=== PATIENT | male | born 1950 | race Caucasian/White ===

== ENCOUNTER 2018-10-15 13:14 | Emergency (ER) | payer BC ==
[2018-10-15] MEDS ORDERED: Sodium Chloride 0.9% 1,000 ML IV ONE (13:20)
[2018-10-15] MEDS ORDERED: Sodium Chloride 0.9% 2.5 ML Syringe FLUSH PRN (13:20)
[2018-10-15] MEDS ORDERED: Aspirin 81 MG Tab.Chew PO ONE (13:20)
[2018-10-15] MEDS ORDERED: Sodium Chloride 0.9% 10 ML Syringe FLUSH PRN (13:20)
[2018-10-15] MEDS ORDERED: Tenecteplase 50 MG Kit IV STA (13:32)
--- NOTE | 2018-10-15 13:32 | EDM.PDOC ---
ED HPI GENERAL MEDICAL PROBLEM - General Chief Complaint: General Stated Complaint: DIZZINESS/SWEATING Time Seen by Provider: 10/15/18 13:23 Source of Information: Reports: Patient History Limitations: Reports: No Limitations - History of Present Illness INITIAL COMMENTS - FREE TEXT/NARRATIVE: HISTORY AND PHYSICAL: History of present illness: Patient is a 68 her old male who presents to the emergency room today with complaints of chest pain, weakness, diaphoretic and near syncope. He said approximately 9 AM this morning he had a pressure across his chest which was somewhat alleviated by resting. States he became area diaphoretic and felt weak. He reports with physical exertion he felt like he could pass out. Upon arrival to the emergency room he was diaphoretic and states that he has generalized weakness. Patient states he has no personal medical history does not take any medications on a routine basis. No personal history of cardiac disease. No family history of cardiac disease. Patient is a nonsmoker, no history of tobacco use. Review of systems: As per history of present illness and below otherwise all systems reviewed and negative. Past medical history: As per history of present illness and as reviewed below otherwise noncontributory. Surgical history: As per history of present illness and as reviewed below otherwise noncontributory. Social history: See social history for further information Family history: As per history of present illness and as reviewed below otherwise noncontributory. Physical exam: General: Well-developed and well-nourished 60-year-old male. Alert and oriented. Vital signs have been reviewed by me. Comfortably on the cot during examination. HEENT: Atraumatic, normocephalic, pupils equal and reactive bilaterally, negative for conjunctival pallor or scleral icterus, mucous membranes moist, trachea midline. No drooling or trismus noted. No meningeal signs. No hot potato voice noted. Lungs: Clear to auscultation, breath sounds equal bilaterally, chest nontender. Heart: S1S2, regular rate and rhythm, bradycardia, without overt murmur Abdomen: Soft, nondistended, nontender. Negative for masses or hepatosplenomegaly. Negative for costovertebral tenderness. Pelvis: Stable nontender. Skin: Pale, intact, warm, slightly diaphoretic. No lesions or rashes noted. Extremities: Atraumatic, moves all extremities per self without difficulty or deficits. Neurovascular unremarkable. Neuro: Awake, alert, oriented. Cranial nerves II through XII unremarkable. Cerebellum unremarkable. Motor and sensory unremarkable throughout. Exam nonfocal. Notes: Dr Hayes was directly involved in this case. Dr Bernal, [facility] ER physician, is aware of this patient and agreeable ticks at this patient for further care and management. Patient is aware of EKG findings and the need for transfer to higher acuity of care. Risks versus benefits of tearing case was discussed with patient and family members at bedside. Agreeable to plan of care. Repeat EKG was performed. [facility] is here to transfer the patient to [facility]. Diagnostics: CBC, CMP, INR, UA, Troponin, EKG, In Home Tutor, Pacer Pads, CXR Therapeutics: SL x 2, IV fluids, ASA, TNKase Impression: Acute DC Plan: Transfer to [facility] in [place] via [facility] Definitive disposition and diagnosis as appropriate pending reevaluation and review of above. ED ROS GENERAL - Review of Systems Review Of Systems: ROS reveals no pertinent complaints other than HPI. ED EXAM, GENERAL - Physical Exam Exam: See Below (See dictation) Course - Orders/Labs/Meds Orders: Active Orders 24 hr Category Date Time Status EKG Documentation Completion [RC] STAT Care 10/15/18 13:20 Active EKG Documentation Completion [RC] STAT Care 10/15/18 13:32 Active COMPREHENSIVE METABOLIC PN,CMP [CHEM] Stat Lab 10/15/18 13:25 Received INR,PT,PROTHROMBIN TIME [COAG] Stat Lab 10/15/18 13:25 Received TROPONIN I [CHEM] Stat Lab 10/15/18 13:25 Received UA RFX GEORGE AND CULT IF INDIC [URIN] Stat Lab 10/15/18 13:20 Ordered Sodium Chloride 0.9% [Normal Saline] 1,000 ml Med 10/15/18 13:20 Active IV STAT Sodium Chloride 0.9% [Saline Flush] Med 10/15/18 13:20 Active 10 ml FLUSH ASDIRECTED PRN Sodium Chloride 0.9% [Saline Flush] Med 10/15/18 13:20 Active 2.5 ml FLUSH ASDIRECTED PRN Saline Lock Insert [OM.PC] Stat Oth 10/15/18 13:20 Ordered Medication Orders Sodium Chloride (Normal Saline) 1,000 mls @ 999 mls/hr IV STAT ONE Stop: 10/15/18 14:20 Last Admin: 10/15/18 13:28 Dose: 999 mls/hr Sodium Chloride (Saline Flush) 10 ml FLUSH ASDIRECTED PRN PRN Reason: Keep Vein Open Last Admin: 10/15/18 13:28 Dose: 10 ml Sodium Chloride (Saline Flush) 2.5 ml FLUSH ASDIRECTED PRN PRN Reason: Keep Vein Open Last Admin: 10/15/18 13:28 Dose: 2.5 ml Labs: Laboratory Tests 10/15/18 Range/Units 13:25 WBC 12.22 H (4.0-11.0) K/uL RBC 4.91 (4.50-5.90) M/uL Hgb 15.3 (13.0-17.0) g/dL Hct 45.2 (38.0-50.0) % MCV 92.1 (80.0-98.0) fL MCH 31.2 (27.0-32.0) pg MCHC 33.8 (31.0-37.0) g/dL RDW Std Deviation 44.1 (28.0-62.0) fl RDW Coeff of Alfonzo 13 (11.0-15.0) % Plt Count 248 (150-400) K/uL MPV 9.30 (7.40-12.00) fL Neut % (Auto) 86.4 H (48.0-80.0) % Lymph % (Auto) 10.3 L (16.0-40.0) % Murray % (Auto) 2.9 (0.0-15.0) % Eos % (Auto) 0.2 (0.0-7.0) % Baso % (Auto) 0.2 (0.0-1.5) % Neut # (Auto) 10.6 H (1.4-5.7) K/uL Lymph # (Auto) 1.3 (0.6-2.4) K/uL Murray # (Auto) 0.4 (0.0-0.8) K/uL Eos # (Auto) 0.0 (0.0-0.7) K/uL Baso # (Auto) 0.0 (0.0-0.1) K/uL Nucleated RBC % 0.0 /100WBC Nucleated RBCs # 0 K/uL Meds: Medications Generic Name Dose Route Start Last Admin Trade Name Freq PRN Reason Stop Dose Admin Sodium Chloride 1,000 mls @ 999 mls/hr 10/15/18 13:20 10/15/18 13:28 Normal Saline IV 10/15/18 14:20 999 mls/hr STAT ONE Administration Sodium Chloride 10 ml 10/15/18 13:20 10/15/18 13:28 Saline Flush FLUSH 10 ml ASDIRECTED PRN Administration Keep Vein Open Sodium Chloride 2.5 ml 10/15/18 13:20 10/15/18 13:28 Saline Flush FLUSH 2.5 ml ASDIRECTED PRN Administration Keep Vein Open Discontinued Medications Generic Name Dose Route Start Last Admin Trade Name Freq PRN Reason Stop Dose Admin Aspirin 324 mg 10/15/18 13:20 10/15/18 13:28 Aspirin PO 10/15/18 13:21 324 mg ONETIME ONE Administration Tenecteplase 50 mg 10/15/18 13:32 Tnkase IV 10/15/18 13:33 NOW STA Protocol Departure - Departure Time of Disposition: 13:36 Disposition: DC/Tfer to Acute Hospital 02 Clinical Impression: DC, Myocardial infarction - Discharge Information Referrals: PCP,None [Primary Care Provider] - Forms: ED Department Discharge - My Orders Last 24 Hours: My Active Orders 10/15/18 13:20 EKG Documentation Completion [RC] STAT UA RFX GEORGE AND CULT IF INDIC [URIN] Stat Sodium Chloride 0.9% [Normal Saline] 1,000 ml IV STAT Sodium Chloride 0.9% [Saline Flush] 10 ml FLUSH ASDIRECTED PRN Sodium Chloride 0.9% [Saline Flush] 2.5 ml FLUSH ASDIRECTED PRN Saline Lock Insert [OM.PC] Stat 10/15/18 13:25 COMPREHENSIVE METABOLIC PN,CMP [CHEM] Stat INR,PT,PROTHROMBIN TIME [COAG] Stat TROPONIN I [CHEM] Stat 10/15/18 13:32 EKG Documentation Completion [RC] STAT - Assessment/Plan Last 24 Hours: My Active Orders 10/15/18 13:20 EKG Documentation Completion [RC] STAT UA RFX GEORGE AND CULT IF INDIC [URIN] Stat Sodium Chloride 0.9% [Normal Saline] 1,000 ml IV STAT Sodium Chloride 0.9% [Saline Flush] 10 ml FLUSH ASDIRECTED PRN Sodium Chloride 0.9% [Saline Flush] 2.5 ml FLUSH ASDIRECTED PRN Saline Lock Insert [OM.PC] Stat 10/15/18 13:25 COMPREHENSIVE METABOLIC PN,CMP [CHEM] Stat INR,PT,PROTHROMBIN TIME [COAG] Stat TROPONIN I [CHEM] Stat 10/15/18 13:32 EKG Documentation Completion [RC] STAT
[2018-10-15] MEDS ORDERED: Heparin Sodium 5,000 Units/ML Vial ONE (13:46)
[2018-10-15] MEDS ORDERED: Clopidogrel 75 MG Tab PO ONE (13:49)
[2018-10-15] MEDS ORDERED: Heparin Sod,Pork In 0.45% Nacl 25,000 UNIT/500 ML IV.SOLN IV ONE (13:50)
[2018-10-15] MEDS ORDERED: Clopidogrel 75 MG Tab ONE (13:51)
[2018-10-15 14:02] LABS: CHLORIDE,CL 106 mmol/L (98-107); SODIUM,NA 140 mmol/L (136-148)
== END 2018-10-15 14:00 ==
LOC: MW.ED 13:14
DX: I21.9 Acute myocardial infarction, unspecified (principal)
CPT/HCPCS: 36415; 80053; 84484; 85025; 85610; 93005; 96360; 99285; A9270; J1644; J3101; J7040